=== PATIENT | female | born 2000 | race Caucasian/White ===

== ENCOUNTER 2024-09-12 19:07 | Inpatient (IN) | payer OTHER ==
[2024-09-12] MEDS ORDERED: Water For Irrigation,Sterile 1,000 ML Container IRR PRN (19:11)
[2024-09-12] MEDS ORDERED: Lidocaine 1% 50 ML MDV INJECT PRN (19:11)
[2024-09-12] MEDS ORDERED: Ondansetron 4 MG/2 ML SDV IVPUSH PRN (19:11)
[2024-09-12] MEDS ORDERED: Sodium Chloride 0.9% 2.5 ML Syringe FLUSH PRN (19:11)
[2024-09-12] MEDS ORDERED: Carboprost Tromethamine 250 MCG/1 mL Vial IM PRN (19:11)
[2024-09-12] MEDS ORDERED: Terbutaline 1 MG/ML SDV SUBCUT PRN (19:11)
[2024-09-12] MEDS ORDERED: Methylergonovine 0.2 MG/1 ML Amp IM PRN (19:11)
[2024-09-12] MEDS ORDERED: Sodium Chloride 0.9% 20 ML SDV IV PRN (19:11)
[2024-09-12] MEDS ORDERED: Tranexamic Acid in NACL,ISO-OS 1,000 MG in Premix Bag 1 BAG IV PRN (19:11)
[2024-09-12] MEDS ORDERED: Sodium Chloride 0.9% 10 ML Syringe FLUSH PRN (19:11)
[2024-09-12] MEDS ORDERED: Misoprostol 200 MCG Tab PO PRN (19:11)
[2024-09-12] MEDS ORDERED: Oxytocin/0.9 % Sodium Chloride 30 UNIT/500 ML BAG IV SCH (19:15)
[2024-09-12] MEDS ORDERED: ePHEDrine 50 MG/ML SDV IVPUSH PRN (19:47)
[2024-09-12] MEDS ORDERED: Phenylephrine HCl In 0.9% NaCl 1 MG/10 ML Syringe IVPUSH PRN (19:47)
[2024-09-12 19:49] LABS: HEMATOCRIT 33.7 % (37.0-47.0); HEMOGLOBIN 11.5 g/dL (12.0-16.0); MEAN CORPUSCULAR HEMOGLOBIN 30.2 pg (28.0-32.0); MEAN CORPUSCULAR HGB CONC 34.1 g/dL (32.0-36.0); MEAN CORPUSCULAR VOLUME 88.5 fL (83.0-99.0); MEAN PLATELET VOLUME 10.2 fL (9.4-12.3); PLATELET COUNT,PLT 290 K/uL (150-400); RED BLOOD CELL COUNT 3.81 M/uL (4.10-5.30); WHITE BLOOD CELL COUNT,WBC 8.47 K/uL (3.9-11.3)
[2024-09-12] MEDS ORDERED: dexmedeTOMIDine HCl 200 MCG/2 ML SDV EPIDUR SCH (20:00)
[2024-09-12] MEDS: Misoprostol 25 MCG (1/4 of 100 MCG) Tab VAG PRN (20:30)
[2024-09-13] MEDS: Lactated Ringers 1,000 ML IV SCH (00:10)
[2024-09-13] MEDS: Butorphanol 2 MG/ML SDV IVPUSH PRN (03:40)
[2024-09-13] MEDS ORDERED: Bupivacaine 0.5% 10 ML SDV ONE (08:09)
[2024-09-13] MEDS: Ropivacaine HCl/PF 400 MG in Premix Bag 1 BAG EPIDUR SCH (08:47)
[2024-09-13] MEDS: Oxytocin/0.9 % Sodium Chloride 30 UNIT/500 ML BAG IV SCH (09:24)
[2024-09-13] MEDS ORDERED: Witch Hazel Medicated Pads 40/Jar TOP PRN (18:26)
[2024-09-13] MEDS ORDERED: Methylergonovine 0.2 MG/1 ML Amp IM PRN (18:26)
[2024-09-13] MEDS ORDERED: Misoprostol 200 MCG Tab RECTAL PRN (18:26)
[2024-09-13] MEDS ORDERED: Docusate Sodium 100 MG Cap PO PRN (18:26)
[2024-09-13] MEDS ORDERED: Lanolin 100% Cream 7 GM Tube TOP PRN (18:26)
[2024-09-13] MEDS ORDERED: Benzocaine/Menthol 20%-0.5% Spray 78 GM Cannister TOP PRN (18:26)
[2024-09-13 19:09] LABS: PH,UMBILICAL ARTERIAL 7.171 (7.18-7.38); PH,UMBILICAL VENOUS 7.218 (7.25-7.45)
[2024-09-14] MEDS: Ibuprofen 800 MG Tab PO PRN (01:47)
[2024-09-14] MEDS: Acetaminophen 500 MG Tab PO PRN (04:41)
[2024-09-14 06:34] LABS: HEMOGLOBIN 10.5 g/dL (12.0-16.0)
[2024-09-14] MEDS: diphenhydrAMINE 50 MG Cap PO ONE ×2 (16:10→23:16)
== END 2024-09-15 11:49 | disposition still patient (30) | DRG 807 ==
LOC: MW.OB 19:07 → OBSVTOIN 09-13 18:26 → MW.OB 09-13 23:45
PROVIDERS: ADMIT Obstetrics & Gynecology; ATTEND Obstetrics & Gynecology
PROC: 10E0XZZ Delivery of Products of Conception, External Approach (ICD-10-PCS; principal; 2024-09-13)
PROC: 3E033VJ Introduction of Other Hormone into Peripheral Vein, Percutaneous Approach (ICD-10-PCS; 2024-09-13)
PROC: 3E0P7VZ Introduction of Hormone into Female Reproductive, Via Natural or Artificial Opening (ICD-10-PCS; 2024-09-13)
PROC: 3E0DXGC Introduction of Other Therapeutic Substance into Mouth and Pharynx, External Approach (ICD-10-PCS; 2024-09-13)
PROC: 3E0R3BZ Introduction of Anesthetic Agent into Spinal Canal, Percutaneous Approach (ICD-10-PCS; 2024-09-13)
PROC: 00HU33Z Insertion of Infusion Device into Spinal Canal, Percutaneous Approach (ICD-10-PCS; 2024-09-13)
DX: O26.643 Intrahepatic cholestasis of pregnancy, third trimester (principal); Z37.0 Single live birth; E78.79 Other disorders of bile acid and cholesterol metabolism; K76.89 Other specified diseases of liver; O99.344 Other mental disorders complicating childbirth; F31.9 Bipolar disorder, unspecified; Z3A.38 38 weeks gestation of pregnancy
CPT/HCPCS: 01967; 36415; 51702; 59020; 59025; 59409; 82803; 85014; 85018; 85027; 86592; 86850; 86900; 86901; A9270-GY; J0595; J0665; J2590; J2795; J7120